=== PATIENT | male | born 1985 | race African-American/Black ===

== ENCOUNTER 2022-05-20 06:43 | Emergency (ER) | payer OTHER ==
[~2022-05-20] VITALS: Ht 172.7 cm; Wt 57.0 kg
[2022-05-20 07:44] VITALS: BP 120/81
[2022-05-20] MEDS ORDERED: ASPI-1153 PO (07:48)
[2022-05-20] MEDS ORDERED: TOPUD PO (07:48)
[2022-05-20] MEDS ORDERED: IBUPROFEN 600MG TABLET PO ONE (08:30)
[2022-05-20] MEDS ORDERED: AMOXICILLIN/POTASSIUM CLAVULANATE 875/125MG TAB PO ONE (08:30)
[2022-05-20] MEDS ORDERED: AMOX1TAB16 MT (09:10)
[2022-05-20] MEDS ORDERED: IBUP-2029 MT (09:10)
== END 2022-05-20 08:18 | disposition home or self-care (01) ==
LOC: ER 06:43
DX: K08.89 Other specified disorders of teeth and supporting structures (principal)
CPT/HCPCS: 99281

== ENCOUNTER 2022-10-09 21:54 | Emergency (ER) | payer MEDICAID ==
[~2022-10-09] VITALS: Ht 172.7 cm; Wt 54.0 kg
[~2022-10-09 21:54] MED LIST: AMOX1TAB16 MT; ASPI-1153 PO; IBUP-2029 MT; TOPUD PO
[2022-10-10] MEDS ORDERED: IBUPROFEN 400MG TABLET PO ONE (01:15)
[2022-10-10 01:18] VITALS: BP 123/84
[2022-10-10] MEDS ORDERED: IBUP-2028 MT (01:26)
[2022-10-10] MEDS ORDERED: AMOX-494 MT (01:27)
== END 2022-10-10 01:35 | disposition home or self-care (01) ==
LOC: ER 21:54
DX: K04.7 Periapical abscess without sinus (principal); J45.909 Unspecified asthma, uncomplicated
CPT/HCPCS: 99283

== ENCOUNTER 2023-03-09 21:35 | Emergency (ER) | payer MEDICAID ==
[~2023-03-09] VITALS: Ht 175.3 cm; Wt 54.9 kg
[~2023-03-09 21:35] MED LIST changes: +AMOX-494 MT; +IBUP-2028 MT
[2023-03-09 21:49] VITALS: O2SAT 99
[2023-03-10 00:27] LABS: CLARITY URINE CLEAR (CLEAR); COLOR URINE YELLOW (YELLOW); GLUCOSE URINE NEGATIVE (NEGATIVE); KETONES URINE NEGATIVE (NEGATIVE); LEUKOCYTE ESTERASE URINE NEGATIVE (NEGATIVE); NITRITE URINE NEGATIVE (NEGATIVE); OCCULT BLOOD URINE NEGATIVE (NEGATIVE); PH URINE 6.5 (4.5-8.0); PROTEIN URINE NEGATIVE (NEGATIVE); SPECIFIC GRAVITY URINE 1.027 (1.005-1.030)
[2023-03-10] MEDS ORDERED: MAGNESIUM/ALUMINUM HYDROXIDE/SIMETHICONE 30ML UDC PO ONE (00:45)
[2023-03-10 01:42] VITALS: BP 118/76; PULSE 82; RESP 16; TEMP 98.2
== END 2023-03-10 01:47 | disposition home or self-care (01) ==
LOC: ER 21:35
DX: R68.89 Other general symptoms and signs (principal); J45.909 Unspecified asthma, uncomplicated
CPT/HCPCS: 71045; 74018; 81003; 99284

== ENCOUNTER 2024-08-03 04:44 | Emergency (ER) | payer MEDICAID ==
[~2024-08-03] VITALS: Ht 177.8 cm; Wt 55.0 kg
[2024-08-03 04:48] VITALS: O2SAT 99
[2024-08-03 04:51] VITALS: BP 102/58; PULSE 89; RESP 16; TEMP 36.9; O2SAT 98
[2024-08-03] MEDS ORDERED: IBUP-2030 MT (06:01)
[2024-08-03] MEDS ORDERED: CLIN-194 MT (06:01)
[2024-08-03] MEDS: CLINDAMYCIN HCL 150MG CAPSULE PO STA (06:23)
== END 2024-08-03 06:52 | disposition home or self-care (01) ==
LOC: ER 04:44
DX: K04.7 Periapical abscess without sinus (principal); J45.909 Unspecified asthma, uncomplicated; Z79.899 Other long term (current) drug therapy
CPT/HCPCS: 99283